=== PATIENT | female | born 1960 | race Caucasian/White ===

== ENCOUNTER 2025-06-23 10:01 | Outpatient (CLI) | payer OTHER | END 2025-06-23 10:02 | disposition home or self-care (01) | LOC: BICCT 10:01 | PROVIDERS: ATTEND Family Medicine | DX: Z12.31 Encounter for screening mammogram for malignant neoplasm of breast (principal); Z12.2 Encounter for screening for malignant neoplasm of respiratory organs; F17.210 Nicotine dependence, cigarettes, uncomplicated; M81.0 Age-related osteoporosis without current pathological fracture; Z78.0 Asymptomatic menopausal state | CPT/HCPCS: 71271; 77063; 77067; 77080 ==